=== PATIENT | female | born 2000 | race Caucasian/White ===

== ENCOUNTER 2024-05-20 13:43 | Outpatient (CLI) | payer BC | END 2024-05-20 13:44 | disposition home or self-care (01) | LOC: BICULT 13:43 | PROVIDERS: ATTEND Nurse Practitioner Family | DX: N63.15 Unspecified lump in the right breast, overlapping quadrants (principal); R92.8 Other abnormal and inconclusive findings on diagnostic imaging of breast ==

== ENCOUNTER → 2024-05-25 | Day surgery (SDC) | payer BC | LOC: BICULT 11:40 | PROVIDERS: ATTEND Obstetrics & Gynecology | PROC: 0H9T3ZX Drainage of Right Breast, Percutaneous Approach, Diagnostic (ICD-10-PCS; principal; 2024-05-25) | DX: N61.21 Granulomatous mastitis, right breast (principal) | CPT/HCPCS: 19083; 38505; 76942; 77066; 88305; 88342; G0279 ==